=== PATIENT | female | born 1990 | race African-American/Black ===

== ENCOUNTER 2017-01-13 02:23 | Emergency (ER) | payer SELFPAY ==
[~2017-01-13] VITALS: Ht 162.6 cm; Wt 53.1 kg
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
--- NOTE | 2017-01-13 02:33 | NUR ---
ANTWAN WIGGINS AT BS.
--- NOTE | 2017-01-13 02:34 | NUR ---
PER PATIENT, [employer] WERE ALREADY CALLED
--- NOTE | 2017-01-13 02:34 | NUR ---
LAST TET VACCINE IN LESS THAN 2 YEARS
--- NOTE | 2017-01-13 02:40 | NUR ---
PER FRIEND, [employer] WITH F/U CALL AND ON THE WAY
--- NOTE | 2017-01-13 03:10 | NUR ---
[employer] AT BEDSIDE FOR POLICE REPORT
--- NOTE | 2017-01-13 03:48 | NUR ---
DR. GEIGER AT BEDSIDE FOR LAC REPAIR.
--- NOTE | 2017-01-13 04:03 | NUR ---
S/P LAC REPAIR WITH 8 STITCHES, CARE INSTRUCTIONS PROVIDED BY DR. ASH
[2017-01-13 04:09] VITALS: BP 110/70
--- NOTE | 2017-01-13 04:17 | NUR ---
Patient discharged to home in stable condition. Written and verbal after care instructions given. Patient verbalizes understanding of instruction.
== END 2017-01-13 04:18 | disposition home or self-care (01) ==
LOC: ER 02:26
DX: S61.412A Laceration without foreign body of left hand, initial encounter (principal); Y04.0XXA Assault by unarmed brawl or fight, initial encounter; Y92.89 Other specified places as the place of occurrence of the external cause; Y93.89 Activity, other specified; Y99.8 Other external cause status
CPT/HCPCS: 73060-TC; A4606; A6402; A6403; J3490; Z7610

== ENCOUNTER 2017-01-21 12:47 | Emergency (ER) | payer SELFPAY ==
[~2017-01-21] VITALS: Ht 162.6 cm; Wt 52.2 kg
[2017-01-21 13:00] VITALS: BP 121/83
== END 2017-01-21 14:31 | disposition home or self-care (01) ==
LOC: ER 12:49
DX: S41.112D Laceration without foreign body of left upper arm, subsequent encounter (principal); W26.0XXD Contact with knife, subsequent encounter; Y93.89 Activity, other specified; Y92.89 Other specified places as the place of occurrence of the external cause; Y99.9 Unspecified external cause status
CPT/HCPCS: A4606; Z7502; Z7610